=== PATIENT | male | born 1985 | race Caucasian/White ===

== ENCOUNTER → 2020-07-25 | Outpatient (CLI) | payer OTHER ==
--- NOTE | 2020-07-25 11:58 | Diagnostic Imaging Report ---
PROCEDURE: CT sinuses without contrast TECHNIQUE: Multiple contiguous axial images were obtained through the sinuses without the use of intravenous contrast. Coronal and sagittal reformations were then performed. Auto Exposure Controls were utilized during the CT exam to meet ALARA standards for radiation dose reduction. INDICATION: Difficulty breathing. Allergies. FINDINGS: There is diffuse moderate mucosal thickening of the maxillary sinuses bilaterally with air-fluid levels. There is considerable fluid within the ethmoid air cells bilaterally as well as in the inferior aspect of the frontal sinuses bilaterally. The sphenoid sinus is clear. Nasal septum is midline. There is edema and hypertrophy of the mucosa of the inferior nasal turbinate on the right. Middle nasal turbinates appear normal. No bony abnormalities. IMPRESSION: Findings are consistent with pansinusitis as described. Dictated by: Dictated on workstation # [id number]
== END ==
LOC: RAD 10:36
PROVIDERS: ATTEND Nurse Practitioner Adult Health
DX: J34.2 Deviated nasal septum (principal)
CPT/HCPCS: 70486

== ENCOUNTER → 2022-09-10 | Outpatient (CLI) | payer OTHER ==
--- NOTE | 2022-09-10 09:41 | Diagnostic Imaging Report ---
PROCEDURE: CT Sinus w/o Contrast. TECHNIQUE: Multiple contiguous axial images were obtained through the sinuses without the use of intravenous contrast. Coronal reformations were performed. All CT scans use one or more of the following dose optimizing techniques: automated exposure control, MA and/or KvP adjustment based on a patient size and exam type, or iterative reconstruction. INDICATION: Chronic sinus congestion. COMPARISON: 07/25/2020. FINDINGS: No evidence of mucosal thickening or fluid levels in the paranasal sinuses. The ostiomeatal complexes are patent. The sphenoethmoid and frontoethmoid recesses are patent and unremarkable. The mastoid air cells are well pneumatized. The bony nasal septum is midline. No acute facial fractures. The globes and orbits are symmetric and unremarkable. Included intracranial contents show no acute abnormalities. The included soft tissues of the head are normal in appearance. IMPRESSION: Normal appearance of the paranasal sinuses. No evidence of active sinus disease. Dictated by: Dictated on workstation # [id number]
== END ==
LOC: RAD 08:19
PROVIDERS: ATTEND Nurse Practitioner Family
DX: R09.81 Nasal congestion (principal)
CPT/HCPCS: 70486